=== PATIENT | male | born 1970 | race Caucasian/White ===

== ENCOUNTER 2019-11-16 01:10 | Emergency (ER) | payer OTHER ==
[~2019-11-16] VITALS: Ht 172.7 cm; Wt 79.4 kg
[2019-11-16 01:22] VITALS: BP 198/104
[2019-11-16 02:10] VITALS: BP 160/98
== END 2019-11-16 02:10 ==
LOC: MED 01:10
DX: I10 Essential (primary) hypertension (principal); Z02.89 Encounter for other administrative examinations
CPT/HCPCS: 99283